=== PATIENT | male | born 2000 | race Caucasian/White ===

== ENCOUNTER 2022-07-10 17:58 | Inpatient (IN) | payer MEDICARE, MEDICAID ==
[~2022-07-10] VITALS: Ht 172.7 cm; Wt 107.2 kg
[2022-07-10] MEDS ORDERED: ARIPIPRAZOLE 10 MG TABLET PO STA (18:09)
[2022-07-10] MEDS ORDERED: LORazepam 1 MG tablet PO ONE (18:10)
[2022-07-10 18:35] LABS: BASOPHILS % (AUTO) 0.4 % (0-1); EOSINOPHILS # (AUTO) 0.1 X10'3 (0-0.9); EOSINOPHILS % (AUTO) 0.7 % (0-6); HEMATOCRIT 44.1 % (42.0-52.0); HEMOGLOBIN 14.9 g/dl (14.0-17.9); LYMPHOCYTES # (AUTO) 1.3 X10'3 (1.1-4.8); LYMPHOCYTES % (AUTO) 16.5 % (21-51); MEAN CORPUSCULAR HEMOGLOBIN 30.5 PG (27.0-31.0); MEAN CORPUSCULAR HGB CONC 33.8 g/dL (33.0-36.5); MEAN CORPUSCULAR VOLUME 90.2 FL (78-98); MEAN PLATELET VOLUME 7.3 FL (7.4-10.4); MONOCYTES # (AUTO) 0.3 X10'3 (0-0.9); MONOCYTES % (AUTO) 3.7 % (2-12); NEUTROPHILS # (AUTO) 6.2 X10'3 (1.8-7.7); NEUTROPHILS % (AUTO) 78.7 % (42-75); PLATELET COUNT 258 X10'3 (140-440); RED BLOOD COUNT 4.89 X10'6 (4.70-6.10); RED CELL DISTRIBUTION WIDTH 13.8 % (11.5-14.5); WHITE BLOOD COUNT 7.8 X10'3 (4.5-11.0)
[2022-07-10 18:44] LABS: ALANINE AMINOTRANSFERASE 26 U/L (12-78); ALBUMIN 3.7 G/DL (3.4-5.0); ALBUMIN/GLOBULIN RATIO 1.1 (1.1-1.5); ALKALINE PHOSPHATASE 61 IU/L (46-116); ANION GAP 7 (8-16); ASPARTATE AMINO TRANSFERASE 15 U/L (10-37); BILIRUBIN,TOTAL 0.6 MG/DL (0.1-1.0); BLOOD UREA NITROGEN 22 MG/DL (7-18); BUN/CREATININE RATIO 25.9 (5.4-32.0); CHLORIDE 107 MMOL/L (99-107); CREATININE 0.85 MG/DL (0.60-1.10); GLUCOSE 148 MG/DL (70-104); POTASSIUM 3.4 MMOL/L (3.5-5.1); SODIUM 142 MMOL/L (135-145); TOTAL CARBON DIOXIDE 27.9 MMOL/L (24-32); eGFR > 90 ML/MIN
[2022-07-10 18:56] LABS: ETHANOL < 0.010 GM/DL (0.0-0.010)
[2022-07-10 22:26] LABS: CLARITY,URINE CLEAR (Clear); COLOR,URINE YELLOW (Yellow); GLUCOSE, URINE NEGATIVE (Neg); KETONES,URINE 15 mg/dl (Neg); LEUKOCYTE ESTERASE ,URINE NEGATIVE (Neg); NITRITES, URINE NEGATIVE (Neg); OCCULT BLOOD,URINE NEGATIVE (Neg); PROTEIN,URINE NEGATIVE (Neg); UROBILINOGEN,URINE 0.2 E.U/dL (0.2-1.0)
--- NOTE | 2022-07-10 22:26 | NUR ---
PT VERY POOR HISTORIAN. HX NOT ABLE TO BE RECALLED. STATES POSSIBLE ASTHMA AND SEIZURES CHILD
[2022-07-10 22:36] LABS: UA COLLECTION TYPE CLN CATCH MIDSTREAM
[2022-07-10 22:39] LABS: URINE AMPHETAMINE SCREEN NEGATIVE (Neg); URINE BARBITUATE SCREEN NEGATIVE (Neg); URINE BENZODIAZEPINES SCREEN NEGATIVE (Neg); URINE CANNABINOID SCREEN NEGATIVE (Neg); URINE COCAINE SCREEN NEGATIVE (Neg); URINE METHADONE SCREEN NEGATIVE (Neg); URINE OPIATE SCREEN NEGATIVE (Neg); URINE PHENCYCLIDINE SCREEN NEGATIVE (Neg)
--- NOTE | 2022-07-10 22:44 | NUR ---
The patient moved to bed 20 from the main ER. He has difficulty verbalizing even simple replies. He was given a sandwich and mild and encouraged to eat and get some rest.
--- NOTE | 2022-07-10 22:57 | NUR ---
Packet sent to [facility]
--- NOTE | 2022-07-10 23:56 | NUR ---
The patient appears to be seeping
--- NOTE | 2022-07-11 02:02 | NUR ---
The patient appears to be sleeping
--- NOTE | 2022-07-11 03:49 | NUR ---
The patient appears to be sleeping
--- NOTE | 2022-07-11 04:52 | NUR ---
The patient is resting on his bed but is awake
--- NOTE | 2022-07-11 07:01 | NUR ---
Patient is sleeping in bed. Respirations even and unlabored.
--- NOTE | 2022-07-11 08:58 | NUR ---
Denys from [facility] here to evaluate patient.
--- NOTE | 2022-07-11 09:28 | NUR ---
Patient pacing from bed to wall, laughing to himself at times. Per Denys, there are no family members able to come and get patient, and he will have to be put on 5150 for GD.
[2022-07-11] MEDS ORDERED: LORA2TAB96 PO (09:52)
[2022-07-11] MEDS ORDERED: ARIP30TA PO (09:52)
--- NOTE | 2022-07-11 10:07 | NUR ---
Telephone call placed to grandmother Ricarda . She reports that patient was hospitalized from 04/25 - 05/07/22 and was prescribed several medications, but patient refused to take the Gabapentin and the Zoloft. She was giving him his Abilify 30 mg q.d. and Ativan 2 mg t.i.d. She describes his behavior as pacing much of the time and not sleeping except for a few hours a day. She is unable to pick him up, because she is elderly and was recently hospitalized herself.
--- NOTE | 2022-07-11 11:47 | NUR ---
Received telephone call from Radha Howell, [employer] Clerk and wanted an update on patient. She would like to be informed of any changes, and will check back periodically.
[2022-07-11] MEDS: ARIPIPRAZOLE 10 MG TABLET PO SCH (12:11)
[2022-07-11] MEDS: LORazepam 1 MG tablet PO SCH ×2 (12:17→20:02)
--- NOTE | 2022-07-11 13:24 | NUR ---
Patient pacing from bed to wall whispering to himself.
--- NOTE | 2022-07-11 13:53 | NUR ---
Received telephone call from Stan at [facility] in [place] asking questions about patient. He will present to
--- NOTE | 2022-07-11 15:19 | NUR ---
Patient lying prone in bed, and appears to be sleeping.
--- NOTE | 2022-07-11 16:01 | NUR ---
Patient has been accepted at [facility] and will be taken upstairs on NOC shift.
--- NOTE | 2022-07-11 16:47 | NUR ---
Patient placed in wheelchair and taken to [place] by YUE Forrest and physical security manager. Patient in stable condition at this time.
[2022-07-11] MEDS ORDERED: acetaminophen 325mg tablet PO PRN ×2 (17:10)
[2022-07-11] MEDS ORDERED: mag hydrox/Alum hydrox/simeth 30ml oral suspension PO PRN (17:10)
[2022-07-11] MEDS ORDERED: magnesium hydroxide 30ml (MOM) UD suspension PO PRN (17:10)
[2022-07-11] MEDS ORDERED: loperamide 2mg capsule PO PRN (17:10)
[2022-07-11] MEDS ORDERED: NICOTINE POLACRILEX 2 MG LOZENGE BC PRN (17:10)
[2022-07-11 17:25] VITALS: BP 138/79
--- NOTE | 2022-07-11 18:02 | NUR ---
ADMIT NOTE: Pt. transferred from ER OF to [facility] at 1643. Pt. cooperative with admission process. Vitals obtained, skinned assessment done, belongings inventoried and consents signed. Advisement given. CSSRS, admission and physical assessment endorsed to wood sawyer. Pt.'s 5150 reads, "You exhibit delusions, disorganized thoughts, holiness fixations, and are unable to plan for food, jail, and clothing.". Per [facility] progress notes, pt. was placed on 5150 hold by [employer] for grave disability when officer responded to individual exhibiting confusion, delusions, and he was found to be from out of the area after running away from home. Pt. dx with autism and schizophrenia per report by family and service provider in [facility] in [facility]. Pt. presents with elevated affect, pacing, delusional, d/o thought process, and religiously preoccupation. Per family, pt. ran away from home on Saturday and has not been taking has psychotropic medications. Addendum: 07/11/22 at 1825 by Anthony Collier RN Med rec also endorsed to wood sawyer.
[2022-07-11 20:00] VITALS: BP 111/62
--- NOTE | 2022-07-12 01:58 | NUR ---
Nursing Progress Note: Geoffrey Problem:. Pt.'s 5150 reads, "You exhibit delusions, disorganized thoughts, scientology fixations, and are unable to plan for food, [place] [facility], and clothing.". Per [facility] progress notes, pt. was placed on 5150 hold by [employer] for grave disability when officer responded to individual exhibiting confusion, delusions, and he was found to be from out of the area after running away from home. Pt. dx with autism and schizophrenia per report by family and service provider in [facility] in [facility]. Pt. presents with elevated affect, pacing, delusional, d/o thought process, and religiously preoccupation. Per family, pt. ran away from home on Saturday and has not been taking has psychotropic medications. Interventions: Provided Medication Administration & Management; Maintained a Safe & Supportive Environment; Clear & Simple Instructions; Direction & Encouragement Regarding Performance of ADLs; Monitored Behaviors and Maintained Clear Boundaries; Provided Physical Assessment and 1:1 Patient Interview; Therapeutic Conversation & Active Listening Response: RN received pt. resting on his bed. 1:1 assessment completed. Pt denies SI. Pt is a poor historian and could not answer questions regarding medical history. Pt would stare at this RN with a flat, blank stare. Pt took medications without issue and participated in snacks. Pt asked when the community room closes and then went back to his room to sleep. Plan: Pt. requires a safe and supportive environment, medication titration until effective dose, needs to be monitored for crisis stabilization, and a viable plan for food, water & [place] [facility] for discharge.
[2022-07-12] MEDS: LORazepam 1 MG tablet PO SCH ×3 (07:19→20:09)
[2022-07-12] MEDS: ARIPIPRAZOLE 10 MG TABLET PO SCH (07:19)
[2022-07-12 07:48] VITALS: BP 120/72
[2022-07-12] MEDS: nicotine 21mg patch - 24 hr TD SCH (08:00)
[2022-07-12 08:01] LABS: HEMOGLOBIN A1C 5.3 % (4.5-6.2)
[2022-07-12 08:24] LABS: CHOL/HDL RATIO 2.7 (0.00-4.99); CHOLESTEROL 175 MG/DL (0-200); HDL CHOLESTEROL 64 MG/DL (35-60); LDL CHOLESTEROL 96 MG/DL (50-100); TRIGLYCERIDES 34 MG/DL (20-135)
--- NOTE | 2022-07-12 13:07 | NUR ---
GRANDMOTHER CALLED Received phone call from Geoffrey's grandmother, Ricarda (ph# [phone]), who reported Geoffrey lives with her in [place]. She reported he was hospitalized in April. She reported she helps him with his medications. She reported she is willing to drive up to [place] to get him upon discharge. She is just requesting the he have some medication for the drive. She reported he is connected with [facility] in [place]. MICHELLE Grimaldo
--- NOTE | 2022-07-12 16:15 | NUR ---
Nursing Progress Note: Problem:. Pt.'s 5150 reads, "You exhibit delusions, disorganized thoughts, jain fixations, and are unable to plan for food, fdc, and clothing.". Per [facility] progress notes, pt. was placed on 5150 hold by [employer] for grave disability when officer responded to individual exhibiting confusion, delusions, and he was found to be from out of the area after running away from home. Pt. dx with autism and schizophrenia per report by family and service provider in [facility] in [facility]. Pt. presents with elevated affect, pacing, delusional, d/o thought process, and religiously preoccupation. Per family, pt. ran away from home on Saturday and has not been taking his psychotropic medications. Interventions: Provided Medication Administration & Management; Maintained a Safe & Supportive Environment; Clear & Simple Instructions; Direction & Encouragement Regarding Performance of ADLs; Monitored Behaviors and Maintained Clear Boundaries; Provided Physical Assessment and 1:1 Patient Interview; Therapeutic Conversation & Active Listening; Education & Monitoring. Response: RN received pt. asleep in bed at start of shift. Pt. awoke and resting in bed before breakfast. Pt. took AM medications and ate his breakfast. Pt. observed pacing unit and listening to headphones. 1:1 done at bedside. Pt. gives minimal, mostly one word responses to questions. Pt. denies SI/HI and visual hallucinations, but reports AH. When asked what the voices are telling him, pt. states, Nothing bad. When asked about the reason for his admission pt. states, I was paranoid. Pt. observed talking and laughing to himself and appears to be responding to internal stimuli. At lunch pt. requesting more food. Pt. is socially withdrawn. Plan: Pt. requires a safe and supportive environment, medication titration until effective dose, needs to be monitored for crisis stabilization, and a viable plan for food, water & fdc for discharge.
[2022-07-12 20:00] VITALS: BP 124/78
--- NOTE | 2022-07-13 00:07 | NUR ---
Nursing Progress Note: Geoffrey Problem:. Pt.'s 5150 reads, "You exhibit delusions, disorganized thoughts, worship fixations, and are unable to plan for food, penitentiary, and clothing.". Per [facility] progress notes, pt. was placed on 5150 hold by [employer] for grave disability when officer responded to individual exhibiting confusion, delusions, and he was found to be from out of the area after running away from home. Pt. dx with autism and schizophrenia per report by family and service provider in [facility] in [facility]. Pt. presents with elevated affect, pacing, delusional, d/o thought process, and religiously preoccupation. Per family, pt. ran away from home on Saturday and has not been taking his psychotropic medications. Interventions: Provided Medication Administration & Management; Maintained a Safe & Supportive Environment; Clear & Simple Instructions; Direction & Encouragement Regarding Performance of ADLs; Monitored Behaviors and Maintained Clear Boundaries; Provided Physical Assessment and 1:1 Patient Interview; Therapeutic Conversation & Active Listening; Education & Monitoring. Response: RN received pt. pacing the unit. When approached the pt looked at this RN with a flat, blunt affect and said hello. He states he is ready to leave here and when can he go? Pt observed pacing unit with the Bible in hand and later was reading the bible to staff. Pt told he could read his bible in his room. Pt became intrusive to his roommate and was moved to a different bed. Pt took all HS medications without issue. Plan: Pt. requires a safe and supportive environment, medication titration until effective dose, needs to be monitored for crisis stabilization, and a viable plan for food, water & penitentiary for discharge.
[2022-07-13 07:43] VITALS: BP 120/77
[2022-07-13] MEDS: ARIPIPRAZOLE 10 MG TABLET PO SCH (07:48)
[2022-07-13] MEDS: LORazepam 1 MG tablet PO SCH ×3 (07:48→19:49)
[2022-07-13] MEDS: nicotine 21mg patch - 24 hr TD SCH (08:00)
--- NOTE | 2022-07-13 14:27 | NUR ---
DISCHARGE PLANNING Spoke to Jed Edgar, rehabilitation caseworker with [employer] (ph# [phone]), multiple times today to discuss discharge plan and how to transport Geoffrey back home to [place]. Jose reported he has looked into transportation options and reported [facility] cannot transport him back due to the distance. Jose reported Geoffrey's grandmother is in her 80's and frail and is trying to find a family member to pick him up. Discussed various transportation options. We both agreed bus or [employer] would not be a good idea. Suggested Geoffrey could fly direct from [place]. [employer] has the best damian ($[address] to [place]). Jose thought that might be a good option if family cannot pickers material handlers Geoffrey. Confirmed Geoffrey does have his ID in his wallet. Met with Geoffrey to discuss discharge plan. He reported he is ok with staying for a few days. He was also agreeable with returning home. Informed him his grandmother is trying to find a family member to pick him up. Discussed the possibility with flying and he was agreeable to this as well. MICHELLE Grimaldo
--- NOTE | 2022-07-13 17:13 | NUR ---
Nursing Progress Note: Problem: Pt.'s 5150 reads, "You exhibit delusions, disorganized thoughts, jewish fixations, and are unable to plan for food, detention, and clothing.". Per [facility] progress notes, pt. was placed on 5150 hold by [employer] for grave disability when officer responded to individual exhibiting confusion, delusions, and he was found to be from out of the area after running away from home. Pt. dx with autism and schizophrenia per report by family and service provider in [facility] in [facility]. Pt. presents with elevated affect, pacing, delusional, d/o thought process, and religiously preoccupation. Per family, pt. ran away from home on Saturday and has not been taking his psychotropic medications. Interventions: Provided Medication Administration & Management; Maintained a Safe & Supportive Environment; Clear & Simple Instructions; Direction & Encouragement Regarding Performance of ADLs; Monitored Behaviors and Maintained Clear Boundaries; Provided Physical Assessment and 1:1 Patient Interview; Therapeutic Conversation & Active Listening; Education & Monitoring. Response: RN received pt. asleep in bed at start of shift. Pt. awoke and resting in bed before breakfast. Pt. took AM medications and ate his breakfast. Pt. observed pacing unit and listening to headphones. 1:1 done at bedside. Pt. gives minimal, mostly one word responses to questions. Pt. denies SI/HI and A/V hallucinations. However, pt. is observed talking to himself excitedly at times. When asked about the reason for his admission pt. states, I was paranoid. When asked if he has had a bowel movement, pt. states, I dont want to talk about that. RN spoke with pt.s therapist from [place] who is working on transportation for pt. Therapist reports that pt.s erratic behaviors began after his grandmother became ill and was hospitalized this past summer. Plan: Pt. requires a safe and supportive environment, medication titration until effective dose, needs to be monitored for crisis stabilization, and a viable plan for food, water & detention for discharge.
[2022-07-13 20:00] VITALS: BP 133/65
--- NOTE | 2022-07-14 02:02 | NUR ---
Nursing Progress Note: Geoffrey Problem: Pt.'s 5150 reads, "You exhibit delusions, disorganized thoughts, amish fixations, and are unable to plan for food, long term, and clothing.". Per [facility] progress notes, pt. was placed on 5150 hold by [employer] for grave disability when officer responded to individual exhibiting confusion, delusions, and he was found to be from out of the area after running away from home. Pt. dx with autism and schizophrenia per report by family and service provider in [facility] in [facility]. Pt. presents with elevated affect, pacing, delusional, d/o thought process, and religiously preoccupation. Per family, pt. ran away from home on Saturday and has not been taking his psychotropic medications. Interventions: Provided Medication Administration & Management; Maintained a Safe & Supportive Environment; Clear & Simple Instructions; Direction & Encouragement Regarding Performance of ADLs; Monitored Behaviors and Maintained Clear Boundaries; Provided Physical Assessment and 1:1 Patient Interview; Therapeutic Conversation & Active Listening; Education & Monitoring. Response: RN received pt pacing the hallway. Pt denies MH symptoms (denies AH) but is responding to IS. Pt asks When do I get to go home.I dont know why I came here, I am bored. Pt continues to pace the hallway talking to himself. Observed in the community room eating snacks, took HS medications without issue and went to bed. Plan: Pt. requires a safe and supportive environment, medication titration until effective dose, needs to be monitored for crisis stabilization, and a viable plan for food, water & long term for discharge.
[2022-07-14] MEDS: LORazepam 1 MG tablet PO SCH ×3 (08:18→20:51)
[2022-07-14] MEDS: ARIPIPRAZOLE 10 MG TABLET PO SCH (08:18)
[2022-07-14 08:31] VITALS: BP 124/80
--- NOTE | 2022-07-14 14:50 | NUR ---
Nursing Progress Note: Problem: Pt.'s 5150 reads, "You exhibit delusions, disorganized thoughts, episcopal fixations, and are unable to plan for food, nursing home, and clothing.". Per [facility], pt. placed on 5150 hold by MARTY for grave disability when officer responded to individual exhibiting confusion, delusions, and was found to be from out of the area after running away from home. Pt. dx with autism and schizophrenia per report by family and service provider in [facility] in [facility]. Per family, pt. ran away from home on Saturday and has not been taking his psychotropic medications. Interventions: Provided 1:1 assessment with therapeutic communication and active listening. Provided medication administration/education/monitoring. Provided clear & simple instructions. Encouraged performance of ADLs. Monitored Q15 minute safety checks. Response: Pt up for breakfast and medication pass. He is compliant with taking his meds. Takes each pill one at a time while mumbling. Pt. observed pacing unit and listening to headphones most of the day or isolating in his room. Speech in unclear and disorganized. Affect blunted. Plan: Pt. requires a safe and supportive environment, medication titration until effective dose, needs to be monitored for crisis stabilization, and a viable plan for food, water & nursing home for discharge.
[2022-07-14 19:00] VITALS: BP 125/82
[2022-07-14 19:19] VITALS: BP 125/82
[2022-07-14] MEDS: ARIPIPRAZOLE 15 MG TABLET PO SCH (20:52)
--- NOTE | 2022-07-14 22:44 | NUR ---
Nursing Progress Note: Problem: Pt.'s 5150 reads, "You exhibit delusions, disorganized thoughts, moravian fixations, and are unable to plan for food, halfway, and clothing.". Per [facility], pt. placed on 5150 hold by M[employer] for grave disability when officer responded to individual exhibiting confusion, delusions, and was found to be from out of the area after running away from home. Pt. dx with autism and schizophrenia per report by family and service provider in [facility] in [facility]. Per family, pt. ran away from home on Saturday and has not been taking his psychotropic medications. Interventions: Provided 1:1 assessment with therapeutic communication and active listening. Provided medication administration/education/monitoring. Provided clear & simple instructions. Encouraged performance of ADLs. Monitored Q15 minute safety checks. Response: Patient is ambulatory on the unit following shift change. He listens to headphones. Patient paces the hallways. Thought is disorganized. Patient did eat dinner, he was medication compliant. Patient looks to be responding to internal stimuli at times. Plan: Pt. requires a safe and supportive environment, medication titration until effective dose, needs to be monitored for crisis stabilization, and a viable plan for food, water & halfway for discharge.
--- NOTE | 2022-07-15 07:16 | NUR ---
Initial: Pt admitted w/ schizophrenia per EMR. Currently on Regular diet w/ mostly 100% intake of meals meeting est needs at this time. LBM 07/11. No nutrition intervention implemented at this time, will continue to monitor. Recs: 1. Continue Regular diet as tolerated 2. Bowel care PRN 3. Weekly wts Addendum: 07/15/22 at [address] Amended: Links added.
[2022-07-15] MEDS: LORazepam 1 MG tablet PO SCH ×3 (07:47→20:52)
[2022-07-15 08:00] VITALS: BP 116/66
[2022-07-15 08:58] LABS: ALBUMIN 3.8 G/DL (3.4-5.0); ANION GAP 10 (8-16); BLOOD UREA NITROGEN 22 MG/DL (7-18); BUN/CREATININE RATIO 27.5 (5.4-32.0); CALCIUM 9.5 MG/DL (8.5-10.1); CHLORIDE 102 MMOL/L (99-107); GLUCOSE 77 MG/DL (70-104); POTASSIUM 3.5 MMOL/L (3.5-5.1); SODIUM 143 MMOL/L (135-145); TOTAL CARBON DIOXIDE 31.2 MMOL/L (24-32); eGFR > 90 ML/MIN
--- NOTE | 2022-07-15 17:31 | NUR ---
Nursing Progress Note: Problem: Pt.'s 5150 reads, "You exhibit delusions, disorganized thoughts, buddhism fixations, and are unable to plan for food, longterm, and clothing.". Per [facility], pt. placed on 5150 hold by M[employer] for grave disability when officer responded to individual exhibiting confusion, delusions, and was found to be from out of the area after running away from home. Pt. dx with autism and schizophrenia per report by family and service provider in [facility] in [facility]. Per family, pt. ran away from home on Saturday and has not been taking his psychotropic medications. Interventions: Provided 1:1 assessment with therapeutic communication and active listening. Provided medication administration/education/monitoring. Provided clear & simple instructions. Encouraged performance of ADLs. Monitored Q15 minute safety checks. Response: Patient has been pacing the unit all day. Hes medication compliant, but hes still responding to IS, having conversations with himself as he paces. He wears headphones but they dont seem to help with the voices. He has thought blocking, and they are disorganized. Patient has trouble asking, and making his needs known. Plan: Pt. requires a safe and supportive environment, medication titration until effective dose, needs to be monitored for crisis stabilization, and a viable plan for food, water & longterm for discharge.
[2022-07-15 19:36] VITALS: BP 115/70
[2022-07-15] MEDS: ARIPIPRAZOLE 15 MG TABLET PO SCH (20:52)
--- NOTE | 2022-07-16 03:56 | NUR ---
Nursing Progress Note: Problem: Pt.'s 5150 reads, "You exhibit delusions, disorganized thoughts, anglican fixations, and are unable to plan for food, jail, and clothing.". Per [facility], pt. placed on 5150 hold by M[employer]Y for grave disability when officer responded to individual exhibiting confusion, delusions, and was found to be from out of the area after running away from home. Pt. dx with autism and schizophrenia per report by family and service provider in [facility] in [facility]. Per family, pt. ran away from home on Saturday and has not been taking his psychotropic medications. Interventions: Provided 1:1 assessment with therapeutic communication and active listening. Provided medication administration/education/monitoring. Provided clear & simple instructions. Encouraged performance of ADLs. Monitored Q15 minute safety checks. Response: Patient is pleasant and cooperative with care; compliant with medication. He denies SI, HI, A/VH; appears to perseverate on food and buddhist. Patient asked each staff member for snack prior to allotted time but seems he uses asking for food as a conversation starter. He participated in HS snack and paced the halls listening to headphones prior to bed; observed sleeping and does not appear to be having difficulty. Plan: Pt. requires a safe and supportive environment, medication titration until effective dose, needs to be monitored for crisis stabilization, and a viable plan for food, water & jail for discharge.
[2022-07-16 07:39] VITALS: BP 124/82
[2022-07-16] MEDS: LORazepam 1 MG tablet PO SCH ×3 (07:54→20:36)
--- NOTE | 2022-07-16 14:12 | NUR ---
[address]LD MICHELLE Grimaldo
--- NOTE | 2022-07-16 17:15 | NUR ---
Nursing Progress Note: Problem: Pt.'s 5150 reads, "You exhibit delusions, disorganized thoughts, islam fixations, and are unable to plan for food, jail, and clothing.". Per [facility] progress notes, pt. was placed on 5150 hold by [employer] for grave disability when officer responded to individual exhibiting confusion, delusions, and he was found to be from out of the area after running away from home. Pt. dx with autism and schizophrenia per report by family and service provider in [facility] in [facility]. Pt. presents with elevated affect, pacing, delusional, d/o thought process, and religiously preoccupation. Per family, pt. ran away from home on Saturday and has not been taking his psychotropic medications. Interventions: Provided Medication Administration & Management; Maintained a Safe & Supportive Environment; Clear & Simple Instructions; Direction & Encouragement Regarding Performance of ADLs; Monitored Behaviors and Maintained Clear Boundaries; Provided Physical Assessment and 1:1 Patient Interview; Therapeutic Conversation & Active Listening; Education & Monitoring. Response: RN received pt. asleep in bed at start of shift. Pt. awoke and resting in bed before breakfast. Pt. took AM medications and ate his breakfast. Pt. observed pacing unit and listening to headphones. 1:1 done at bedside. Pt. gives minimal, mostly one word responses to questions. Pt. denies SI/HI and A/V hallucinations. However, pt. is observed talking to himself excitedly at times. Plan: Pt. requires a safe and supportive environment, medication titration until effective dose, needs to be monitored for crisis stabilization, and a viable plan for food, water & jail for discharge. Pt. being discharged back to his home in [place], [place].
[2022-07-16 19:38] VITALS: BP 118/80
[2022-07-16] MEDS: ARIPIPRAZOLE 15 MG TABLET PO SCH (20:35)
--- NOTE | 2022-07-17 04:56 | NUR ---
Nursing Progress Note: Problem: Pt.'s 5150 reads, "You exhibit delusions, disorganized thoughts, restorationism fixations, and are unable to plan for food, fpc, and clothing.". Per [facility], pt. placed on 5150 hold by MARTY for grave disability when officer responded to individual exhibiting confusion, delusions, and was found to be from out of the area after running away from home. Pt. dx with autism and schizophrenia per report by family and service provider in [facility] in [facility]. Per family, pt. ran away from home on Saturday and has not been taking his psychotropic medications. Interventions: Provided 1:1 assessment with therapeutic communication and active listening. Provided medication administration/education/monitoring. Provided clear & simple instructions. Encouraged performance of ADLs. Monitored Q15 minute safety checks. Response: Patient is pleasant and cooperative with care; compliant with medication. He denies SI, HI, A/VH but constantly responding to IS while pacing the unit. CRN spoke with patient about discharge planning and he stated, "nobody is coming to pick me up." Patient participated in HS snack prior to bed; observed sleeping and did not appear to have difficulty. Plan: Pt. requires a safe and supportive environment, medication titration until effective dose, needs to be monitored for crisis stabilization, and a viable plan for food, water & fpc for discharge.
[2022-07-17 07:30] VITALS: BP 114/74
[2022-07-17] MEDS: LORazepam 1 MG tablet PO SCH ×3 (07:54→20:33)
[2022-07-17] MEDS ORDERED: LORA2TAB96 PO (11:33)
[2022-07-17] MEDS ORDERED: ARIP30TA PO (11:33)
--- NOTE | 2022-07-17 15:13 | NUR ---
DISCHARGE PLANNING Met with Geoffrey with Dr Helm to discuss discharge planning. Geoffrey is agreeable to taking a flight home. [employer] offers the cheapest flight and offers a one way flight on Fri at 7:35 PM. Spoke with Geoffrey's grandmother, Rdaha (ph# [phone]) to discuss this plan. She is going to see if she can get someone to pick him up at the airport and will call senior copywriter back. MICHELLE Grimaldo
--- NOTE | 2022-07-17 17:14 | NUR ---
Nursing Progress Note: Problem: Pt.'s 5150 reads, "You exhibit delusions, disorganized thoughts, yarsanism fixations, and are unable to plan for food, snf, and clothing.". Per [facility] progress notes, pt. was placed on 5150 hold by MARTY for grave disability when officer responded to individual exhibiting confusion, delusions, and he was found to be from out of the area after running away from home. Pt. dx with autism and schizophrenia per report by family and service provider in [facility] in [facility]. Pt. presents with elevated affect, pacing, delusional, d/o thought process, and religiously preoccupation. Per family, pt. ran away from home on Saturday and has not been taking his psychotropic medications. Interventions: Provided Medication Administration & Management; Maintained a Safe & Supportive Environment; Clear & Simple Instructions; Direction & Encouragement Regarding Performance of ADLs; Monitored Behaviors and Maintained Clear Boundaries; Provided Physical Assessment and 1:1 Patient Interview; Therapeutic Conversation & Active Listening; Education & Monitoring. Response: RN received pt. asleep in bed at start of shift. Pt. awoke and resting in bed before breakfast. Pt. took AM medications and ate his breakfast. Pt. observed pacing unit and listening to headphones. 1:1 done at bedside. Pt. gives minimal, mostly one word responses to questions. Pt. denies SI/HI and A/V hallucinations. Pt. perseverates on discharge plan, asking frequently to talk with the case management social worker. Pt. observed talking to himself frequently and sometimes very excitedly. Plan: Pt. requires a safe and supportive environment, medication titration until effective dose, needs to be monitored for crisis stabilization, and a viable plan for food, water & snf for discharge. Pt. being discharged back to his home in [place], [place].
[2022-07-17 19:35] VITALS: BP 130/75
[2022-07-17] MEDS: ARIPIPRAZOLE 15 MG TABLET PO SCH (20:33)
--- NOTE | 2022-07-18 05:16 | NUR ---
Nursing Progress Note: Problem: Pt.'s 5150 reads, "You exhibit delusions, disorganized thoughts, mu-ism fixations, and are unable to plan for food, alf, and clothing.". Per [facility], pt. placed on 5150 hold by MARTY for grave disability when officer responded to individual exhibiting confusion, delusions, and was found to be from out of the area after running away from home. Pt. dx with autism and schizophrenia per report by family and service provider in [facility] in [facility]. Per family, pt. ran away from home on Saturday and has not been taking his psychotropic medications. Interventions: Provided 1:1 assessment with therapeutic communication and active listening. Provided medication administration/education/monitoring. Provided clear & simple instructions. Encouraged performance of ADLs. Monitored Q15 minute safety checks. Response: Patient is pleasant and cooperative with care; compliant with medication. Denies SI, HI, A/VH but continues to respond to IS. Appears happy; smiling and waving while pacing the unit. Patient participated in HS snack prior to bed; observed sleeping and did not appear to have difficulty. Plan: Pt. requires a safe and supportive environment, medication titration until effective dose, needs to be monitored for crisis stabilization, and a viable plan for food, water & alf for discharge.
[2022-07-18] MEDS: LORazepam 1 MG tablet PO SCH ×3 (07:37→20:36)
[2022-07-18 07:54] VITALS: BP 143/87
--- NOTE | 2022-07-18 17:51 | NUR ---
Nursing Progress Note: Problem: Pt.'s 5150 reads, "You exhibit delusions, disorganized thoughts, spiritism fixations, and are unable to plan for food, nursing home, and clothing.". Per [facility] progress notes, pt. was placed on 5150 hold by [employer] for grave disability when officer responded to individual exhibiting confusion, delusions, and he was found to be from out of the area after running away from home. Pt. dx with autism and schizophrenia per report by family and service provider in [facility] in [facility]. Pt. presents with elevated affect, pacing, delusional, d/o thought process, and religiously preoccupation. Per family, pt. ran away from home on Saturday and has not been taking his psychotropic medications. Interventions: Provided Medication Administration & Management; Maintained a Safe & Supportive Environment; Clear & Simple Instructions; Direction & Encouragement Regarding Performance of ADLs; Monitored Behaviors and Maintained Clear Boundaries; Provided Physical Assessment and 1:1 Patient Interview; Therapeutic Conversation & Active Listening; Education & Monitoring. Response: RN received pt. asleep in bed at start of shift. Pt. awoke and resting in bed before breakfast. Pt. took AM medications and ate his breakfast. Pt. perseverates on food, asking for more food throughout the day. Pt. observed pacing unit and listening to headphones. 1:1 done at bedside. Pt. gives minimal, mostly one word responses to questions. Pt. denies SI/HI and A/V hallucinations. Pt. does talk to himself and paces hallway throughout the day. Plan: Pt. requires a safe and supportive environment, medication titration until effective dose, needs to be monitored for crisis stabilization, and a viable plan for food, water & nursing home for discharge. Pt. being discharged back to his home in [place], [place].
[2022-07-18 20:00] VITALS: BP 122/77
[2022-07-18] MEDS: ARIPIPRAZOLE 15 MG TABLET PO SCH (20:36)
--- NOTE | 2022-07-18 23:08 | NUR ---
Nursing Progress Note: Problem: Pt.'s 5150 reads, "You exhibit delusions, disorganized thoughts, anabaptism fixations, and are unable to plan for food, senior care, and clothing.". Per [facility], pt. placed on 5150 hold by MARTY for grave disability when officer responded to individual exhibiting confusion, delusions, and was found to be from out of the area after running away from home. Pt. dx with autism and schizophrenia per report by family and service provider in [facility] in [facility]. Per family, pt. ran away from home on Saturday and has not been taking his psychotropic medications. Interventions: Provided 1:1 assessment with therapeutic communication and active listening. Provided medication administration/education/monitoring. Provided clear & simple instructions. Encouraged performance of ADLs. Monitored Q15 minute safety checks. Response: Patient is upbeat, he walks the hallway with headphones on making hand gestures and talking to himself. He is very pleasant on assessment and states he had a great day today. He denies all MH symptoms, but he is observed responding to internal stimuli frequently, although in a pleasant way. He takes his HS medications without issue and gives RN a hug before going to bed. Plan: Pt. requires a safe and supportive environment, medication titration until effective dose, needs to be monitored for crisis stabilization, and a viable plan for food, water & senior care for discharge.
[2022-07-19] MEDS: LORazepam 1 MG tablet PO SCH ×3 (07:30→20:25)
[2022-07-19 08:00] VITALS: BP 118/80
--- NOTE | 2022-07-19 13:31 | NUR ---
Nursing Progress Note: Problem: Pt.'s 5150 reads, "You exhibit delusions, disorganized thoughts, religion fixations, and are unable to plan for food, jail, and clothing." Per [facility] progress notes, pt. was placed on 5150 hold by [employer] for grave disability when officer responded to individual exhibiting confusion, delusions, and he was found to be from out of the area after running away from home. Pt. dx with autism and schizophrenia per report by family and service provider in [facility] in [facility]. Pt. presents with elevated affect, pacing, delusional, d/o thought process, and religiously preoccupation. Per family, pt. ran away from home on Saturday and has not been taking his psychotropic medications. Interventions: Provided Medication Administration & Management; Maintained a Safe & Supportive Environment; Clear & Simple Instructions; Direction & Encouragement Regarding Performance of ADLs; Monitored Behaviors and Maintained Clear Boundaries; Provided Physical Assessment and 1:1 Patient Interview; Therapeutic Conversation & Active Listening; Education & Monitoring. Response: Received Pt in bed sleeping w/o distress at the beginning of this shift. Pt woke and was cooperative with vitals and paced halls with headphones for most of the day. Pt guarded with short responses that have an annoyed tone at times. Pt took meds w/o issue and ate meals well. Pt denies SI/HI or psychotic SXs. Pt used phone periodically during day. Found Pt kneeling in bed as if praying. Pt responded well to limits on food during meals and snack times. Plan: Pt. requires a safe and supportive environment, medication titration until effective dose, needs to be monitored for crisis stabilization, and a viable plan for food, water & jail for discharge. Pt. being discharged back to his home in [place], [place].
[2022-07-19 19:48] VITALS: BP 118/79
[2022-07-19] MEDS: ARIPIPRAZOLE 15 MG TABLET PO SCH (20:21)
--- NOTE | 2022-07-20 05:24 | NUR ---
Nursing Progress Note: Problem: Pt.'s 5150 reads, "You exhibit delusions, disorganized thoughts, advent fixations, and are unable to plan for food, longterm, and clothing.". Per [facility], pt. placed on 5150 hold by MARTY for grave disability when officer responded to individual exhibiting confusion, delusions, and was found to be from out of the area after running away from home. Pt. dx with autism and schizophrenia per report by family and service provider in [facility] in [facility]. Per family, pt. ran away from home on Saturday and has not been taking his psychotropic medications. Interventions: Provided 1:1 assessment with therapeutic communication and active listening. Provided medication administration/education/monitoring. Provided clear & simple instructions. Encouraged performance of ADLs. Monitored Q15 minute safety checks. Response: Patient is pleasant and cooperative with care; compliant with medication. Denies SI, HI, A/VH; no apparent delusions expressed. Patient reported to be happy to go home and says "I'll be fine" when technical publications writer brought up his flight. Patient provided HS snack and paced the unit while wearing headphones prior to bed; observed sleeping and did not appear to be having difficulty. Plan: Plan to discharge and take a plane home 07/20/22.
[2022-07-20 07:50] VITALS: BP 102/57
[2022-07-20] MEDS: LORazepam 1 MG tablet PO SCH ×2 (08:54→13:19)
--- NOTE | 2022-07-20 12:47 | NUR ---
DISCHARGE PLAN Geoffrey will be discharging this afternoon. He will take a cab to the [place] airport accompanied by Sal scales, at 5:30 PM. Integration Solution Architect will meet them at the airport and assist Geoffrey with getting checked in and with going through security. Confirmed with grandmother, Ricarda (ph# [phone]), that Geoffrey's uncle will pick him up at the airport in [place]. Geoffrey has follow up scheduled with his psychiatrist. MICHELLE Grimaldo
--- NOTE | 2022-07-20 13:42 | NUR ---
Nursing Progress Note: Problem : Pt.'s 5150 reads, "You exhibit delusions, disorganized thoughts, temple fixations, and are unable to plan for food, fdc, and clothing.". Per [facility], pt. placed on 5150 hold by MARTY for grave disability when officer responded to individual exhibiting confusion, delusions, and was found to be from out of the area after running away from home. Pt. dx with autism and schizophrenia per report by family and service provider in [facility] in [facility]. Per family, pt. ran away from home on Saturday and has not been taking his psychotropic medications. Interventions : Introduced self and established rapport, maintained a safe and supportive environment, ensured contract for safety, provided clear and simple instructions, attempted to orient to reality, and maintained Q 15min safety checks. Response : Received pt. sleeping in bed at the beginning of the shift. He was awoken by staff to attend breakfast in the Group Room. Pt. presented as disheveled and was encouraged to shower, he was able to do so with set-up help only. Afterwards, 1:1 was completed, pt. presents as cooperative and is withdrawn from others. His affect is blunted with periods of animation at times. Pt. approaches this movie writer and attempts to give a hug, requiring redirection with effectiveness. He responds minimally to direct questions and denies all mental health s/s. However, pt. does continue to make what appear to be religiously preoccupied statements at intervals, and tells this movie writer to, "Have juliette." Pt. paces the unit wearing headphones throughout much of the shift, and appears to be responding aloud to internal stimuli at intervals, although much less frequently than previously observed. When questioned regarding discharge, pt. reports he is ready, but does admit to some anxiety. Will continue to monitor him closely. Plan : Per Dr. Helm, pt. continues to require a safe and supportive environment and will discharge back with family.
--- NOTE | 2022-07-20 17:00 | NUR ---
Discharge Note: Pt. ambulated off the unit accompanied by Tech and security to a cab which will be driving him to the airport. At the airport, Tech will wait with patient and assist him to catch his scheduled flight with [employer] back to [facility] with family ([place]) where pt. is from. Pt's belongings were inventoried and returned to him by [email or web address] This life underwriter reviewed medications (which were sent with pt.) and discharge instructions, and pt. reported understanding. Pt. will follow-up with a psychiatrist and therapist.
== END 2022-07-20 17:02 | disposition home or self-care (01) | DRG 885 ==
LOC: ER 18:02 → ED HOLD 07-11 15:55 → ADULT MH 07-11 16:58
PROVIDERS: ADMIT Psychiatry & Neurology Psychiatry; ATTEND Psychiatry & Neurology Psychiatry
DX: F20.9 Schizophrenia, unspecified (principal); Z20.822 Contact with and (suspected) exposure to COVID-19; E66.9 Obesity, unspecified; F84.0 Autistic disorder; Z79.899 Other long term (current) drug therapy; Z68.35 Body mass index [BMI] 35.0-35.9, adult
CPT/HCPCS: 36415; 80048; 80053; 80061; 80305; 80320; 81003; 83036; 84443; 85025; 87081; 87811; 99285